=== PATIENT | female | born 1935 | race Caucasian/White ===

== ENCOUNTER → 2021-01-02 13:49 | Outpatient (BNVA) | payer MEDICARE, OTHER, MEDICAID, SELFPAY | PROVIDERS: PCP Nurse Practitioner Family; Visit Provider Nurse Practitioner Family | DX: N30.00 Acute cystitis without hematuria (principal) | CPT/HCPCS: 81000 ==

== ENCOUNTER 2021-06-16 13:13 | Outpatient (CLI) | payer MEDICARE, MEDICAID, SELFPAY ==
--- NOTE | 2021-06-16 13:22 | XRR_ITS ---
PROCEDURE INFORMATION: Exam: XR Chest Exam date and time: 06/16/2021 1:22 PM Age: 85 years old Clinical indication: Cough; Additional info: R05 - cough TECHNIQUE: Imaging protocol: XR of the chest. Views: 2 views. COMPARISON: No relevant prior studies available. FINDINGS: Tubes, catheters and devices: Cardiac device left anterior chest Lungs: Unremarkable. No consolidation. Pleural spaces: Unremarkable. No pleural effusion. No pneumothorax. Heart/Mediastinum: Unremarkable. No cardiomegaly. Bones/joints: Metallic sternotomy wires are in place. Metallic plate and screws are seen in the cervical spine. XR/XR chest 2V* [id number] IMPRESSION: 1. No acute findings. 2. Cardiac device left chest 3. Sternotomy 4. Metallic hardware cervical spine
== END 2021-06-16 13:14 | disposition home or self-care (01) ==
PROVIDERS: PCP Nurse Practitioner Family; Visit Provider Emergency Medicine
DX: R05 Cough (principal); R06.02 Shortness of breath; Z95.9 Presence of cardiac and vascular implant and graft, unspecified
CPT/HCPCS: 71046

== ENCOUNTER 2021-06-16 13:22 | Outpatient (CLI) | payer MEDICARE, MEDICAID, SELFPAY ==
--- NOTE | 2021-06-16 13:26 | XR_ITS ---
WS: [id number] RIGHT HIP HISTORY: LOW BACK PAIN COMPARISON: None available. Right hip: No acute fracture or dislocation. Moderate narrowing of the hip joint. Osteophytic ridging around the acetabulum and to a lesser extent the femoral head. Enthesopathy at the greater trochante r. Numerous postsurgical clips overlie the RIGHT groin. Moderate calcifications scattered in the femoral artery. XR/XR hip RT 2-3V wo/w pel* [id number] IMPRESSION: 1. No hip fracture. 2. Moderate RIGHT hip joint osteoarthritis.
--- NOTE | 2021-06-16 13:26 | XRR_ITS ---
PROCEDURE INFORMATION: Exam: XR Lumbosacral Spine Exam date and time: 06/16/2021 1:26 PM Age: 85 years old Clinical indication: Low back pain TECHNIQUE: Imaging protocol: XR of the lumbosacral spine. Views: 2 or 3 views. COMPARISON: No relevant prior studies available. FINDINGS: Bones/joints: There is generalized osteopenia and osteoarthritis seen. No acute fracture. Normal alignment. Soft tissues: Unremarkable. XR/XR lumbar spine 2-3V* [id number] IMPRESSION: 1. No acute findings. 2. Osteopenia and osteoarthritis.
== END 2021-06-16 13:23 | disposition home or self-care (01) ==
LOC: RAD 13:24
PROVIDERS: PCP Nurse Practitioner Family; Visit Provider Family Medicine
DX: M54.5 Low back pain (principal); M85.88 Other specified disorders of bone density and structure, other site; M81.0 Age-related osteoporosis without current pathological fracture; M19.041 Primary osteoarthritis, right hand
CPT/HCPCS: 72100; 73502